=== PATIENT | male | born 2000 | race Two or more races ===

== ENCOUNTER 2023-12-07 15:29 | Outpatient (CLI) | payer OTHER ==
--- NOTE | 2023-12-07 18:15 | Ultrasound Report ---
PROCEDURE: Pelvic Limited INDICATIONS: ENLARGED LYMPH NODES TECHNIQUE: Real-time transabdominal scanning was performed of the bilateral groins, with image documentation. COMPARISON: None. FINDINGS: Targeted ultrasound of the bilateral groins demonstrate symmetric nonenlarged lymph nodes with normal morphology including echogenic fatty hilum. The largest lymph node on the right measures 0.4 cm in s hort axis and the largest lymph node on the left measures 0.2 cm in short axis. IMPRESSION: Benign-appearing nonenlarged lymph nodes in the bilateral groins, likely reactive. Recommend clinical correlation. Reviewed by: Nagi Jacob MD on 12/07/2023 6:13 PM PDT Approved by: Nagi Jacob MD on 12/07/2023 6:13 PM PDT Station ID: [id number]
== END 2023-12-07 15:30 | disposition home or self-care (01) ==
LOC: DI 15:29
PROVIDERS: ATTEND General Practice
DX: R59.0 Localized enlarged lymph nodes (principal)

== ENCOUNTER 2024-01-25 19:22 | Emergency (ER) | payer OTHER ==
[2024-01-25 19:45] VITALS: BP 152/47; O2SAT 99
--- NOTE | 2024-01-25 20:09 | XRAY Report ---
PROCEDURE: Ankle 3+V RT INDICATIONS: trauma TECHNIQUE: 3 views of the ankle were acquired. COMPARISON: None. FINDINGS: Bones: Subtle radiolucency is seen in lateral malleolus. No other fracture or dislocation is seen. A nkle mortise is normally aligned. No suspicious bony lesions. Soft tissues: Marked ankle soft tissue swelling is seen. Small tibiotalar joint effusion. Achilles t endon appears normal. IMPRESSION: No displaced ankle fracture or dislocation. Subtle linear lucency involving lateral malle olus concerning for subtle nondisplaced fracture, suggest clinical correlation. Diffuse ankle soft ti ssue swelling is small joint effusion. Reviewed by: Parish Campbell MD on 01/25/2024 8:08 PM PDT Approved by: Parish Campbell MD on 01/25/2024 8:08 PM PDT Station ID: [id number]
--- NOTE | 2024-01-25 21:29 | ED Physician Documentation ---
PD HPI LOWER EXT INJURY - Stated complaint Stated Complaint: R ANKLE INJ - Chief complaint Chief Complaint: Trauma Ext - History obtained from History obtained from: Patient - History of Present Illness PD HPI LOW EXT INJURY LOCATION: Right, Ankle Type of injury: Twist Where injury occurred: Home, Other (playing soccer tonight) Timing - onset: How many hours ago (2) Timing - duration: Hours (2) Timing - details: Abrupt onset Pain level max: 8 Pain level now: 8 Improved by: Rest Worsened by: Moving, Palpating Associated symptoms: Swelling Contributing factors: No: Anticoagulated, Prior ortho surgery, Prosthetic joint - Additional information Additional information: Patient presents to the emergency department complaint of right ankle pain. He states that he was playing soccer tonight when he came down awkwardly on the foot/ankle and felt pain in the ankle. Has had swelling to the ankle. Worse with movement and walking. Better with rest. No other injuries. No numbness or tingling. Review of Systems Constitutional: denies: Fever, Chills Neurologic: denies: Head injury PD PAST MEDICAL HISTORY - Past Medical History Past Medical History: No - Past Surgical History Past Surgical History: No - Allergies Allergies/Adverse Reactions: Allergies Allergy/AdvReac Type Severity Reaction Status Date / Time No Known Drug Allergies Allergy Verified 01/25/24 19:41 - Living Situation Living Situation: reports: With family Living Arrangement: reports: At home - Social History Does the pt smoke?: No Does the pt have substance abuse?: No PD ED PE NORMAL - Vitals Vital signs reviewed: Yes - General General: Alert and oriented X 3, No acute distress - HEENT HEENT: Moist mucous membranes - Derm Derm: Warm and dry - Extremities Extremities: Other (R ankle - Diffuse swelling and tenderness over the medial and lateral malleoli. Neurovascular intact. Otherwise normal examination of the right foot, ankle and lower leg.) - Neuro Neuro: Alert and oriented X 3 - Psych Psych: Normal mood, Normal affect Results - Vitals Vitals: Vital Signs - 24 hr 01/25/24 19:37 Temperature 36.8 C Heart Rate 68 Respiratory 16 Rate Blood Pressure 152/47 H O2 Saturation 99 Oxygen O2 Source Room air - Rads (name of study) R ankle xray Relevant Findings:: Final report received, See rad report PD Medical Decision Making - ED course Complexity details: reviewed results, re-evaluated patient, considered differential, d/w patient ED course: 23-year-old male with what appears to be likely a right ankle sprain, however on x-ray there is a possible linear lucency. Therefore placed in a walking boot and will have him follow-up with his doctor for 1 week for repeat x-rays at that time/ re-evaluation. Patient declines any pain medication here or for home. Given crutches. We will make him nonweightbearing on the right [place]. Patient counseled regarding signs and symptoms for which I believe and urgent re-evaluation would be necessary. Patient with good understanding of and agreement to plan and is comfortable going home at this time This document was made in part using voice recognition software. While efforts are made to proofread this document, sound alike and grammatical errors may occur. Departure - Departure Disposition: 01 Home, Self Care Clinical Impression: Closed right fibular fracture Qualifiers: Encounter type: initial encounter Fibula location: lateral malleolus Fracture alignment: nondisplaced Qualified Code(s): S82.64XA - Nondisplaced fracture of lateral malleolus of right fibula, initial encounter for closed fracture Condition: Good Instructions: ED Fx Ankle Lateral Malleolus, ED Boot Aircast Walker Follow-Up: your,doctor in 1 week [Other] Comments: You were placed into a walking boot tonight and given crutches. There is a possible fracture of your lateral malleolus which is the distal part of your fibula. I have included your x-ray reading below. It is recommended that you stay off of the foot until you are told by your doctor that you can bear weight. They should repeat an x-ray in 1 week to determine if there is a fracture at the site or not. You can use Motrin or Tylenol as needed for pain. Please return if you worsen. PROCEDURE: Ankle 3+V RT INDICATIONS: trauma TECHNIQUE: 3 views of the ankle were acquired. COMPARISON: None. FINDINGS: Bones: Subtle radiolucency is seen in lateral malleolus. No other fracture or dislocation is seen. Ankle mortise is normally aligned. No suspicious bony lesions. Soft tissues: Marked ankle soft tissue swelling is seen. Small tibiotalar joint effusion. Achilles tendon appears normal. IMPRESSION: No displaced ankle fracture or dislocation. Subtle linear lucency involving lateral malleolus concerning for subtle nondisplaced fracture, suggest clinical correlation. Diffuse ankle soft tissue swelling is small joint effusion. Forms: PCP List, Activity restrictions Discharge Date/Time: 01/25/24 22:02
== END 2024-01-25 22:02 | disposition home or self-care (01) ==
LOC: ED 19:22
DX: S82.64XA Nondisplaced fracture of lateral malleolus of right fibula, initial encounter for closed fracture (principal); X50.1XXA Overexertion from prolonged static or awkward postures, initial encounter; Y93.66 Activity, soccer
CPT/HCPCS: 99283; 99284